=== PATIENT | female | born 1960 | race Caucasian/White ===

== ENCOUNTER 2016-11-01 11:58 | Emergency (ER) | payer MEDICAID ==
[2016-11-01 12:36] VITALS: RESP 16; O2SAT 95
--- NOTE | 2016-11-01 12:43 | EDPHY ---
H & P Stated Complaint: tripped and fell onto pavement last noc,injurying rt knee, palm of hand, Time Seen by Provider: 11/01/16 12:42 HPI/ROS: Chief Complaint: Fall HPI: 56-year-old woman had a mechanical slip and fall last night about 9 in the evening. She looked at her foot stuck tends to the floor and fell forward. Patient landed on her right knee pain in her shoulder at that time. Patient has been ambulating and doing well until this morning she was walking around table slipped and fell again with her foot on the carpet falling down 3 stairs. Patient landed on her chin and her left knee. Pain paining of chin pain and pain below her left knee and pain behind her right shoulder. She had no loss of consciousness. She remembers falling is mechanical fall. Did not have any lightheadedness or syncope. No chest pain or palpitations. No shortness of breath. No abdominal pain. She has been able to ambulate since then. She does have a history of bilateral knee replacements and is concerned about the knee replacement on the left. She is able to weight bear flex and extend. ROS: 10 point Review of Systems is negative except as noted in the HPI. PMH: None surgical history: Bilateral knee replacements and a right patellar tendon repair Social History: No smoking, no alcohol, no recreational drug use Family History: non-contributory Physical Exam: Gen: Awake, Alert, No Distress HEENT: Nose: no rhinorrhea Eyes: PERRLA, EOMI Mouth: Moist mucosa dentition is intact. She has got ecchymoses anterior left campbell. She has no mandibular tenderness to palpation. Normal bite Neck: Supple, no JVD, no midline tenderness or step-offs Chest: nontender, lungs clear to auscultation Heart: S1, S2 normal, no murmur Abd: Soft, non-tender, no guarding Back: no CVA tenderness, no midline tenderness Ext: no edema, right shoulder: No reproducible tenderness. She has got full range of motion both actively and passively without pain right shoulder. Left knee. There is a abrasion in the inferior to her left anterior knee. She has full flexion extension. No bony tenderness. Skin: no rash Neuro: CN II-XII intact, Sensation grossly intact, Strength 5/5 in bilateral upper and [lower] extremities - Personal History Current Tetanus Diphtheria and Acellular Pertussis (TDAP): Unsure - Medical/Surgical History Hx Asthma: No Hx Chronic Respiratory Disease: No Hx Diabetes: No Hx Cardiac Disease: No Hx Renal Disease: No Hx Cirrhosis: No Hx Alcoholism: No Hx HIV/AIDS: No Hx Splenectomy or Spleen Trauma: No Other PMH: Med [id number] ,hayfever. Surg-bilat knees,bilat feet, patella tendon rt,saima,tonsils - Social History Smoking Status: Never smoked Constitutional: Initial Vital Signs Temperature (C) 37.0 C 11/01/16 12:29 Heart Rate 60 11/01/16 12:29 Respiratory Rate 16 11/01/16 12:29 Blood Pressure 156/78 H 11/01/16 12:29 O2 Sat (%) 95 11/01/16 12:29 O2 Delivery Mode Room Air Allergies/Adverse Reactions: HAYFEVER Allergy (Mild, Uncoded 05/01/12 16:04) STUFFY NOSE Home Medications: Medication Instructions Recorded Aleve 11/01/16 Claritin 11/01/16 Tramadol HCl 11/01/16 VITAMIN D 11/01/16 Vitamin B-Complex & C 11/01/16 Medical Decision Making - Diagnostics Imaging: I viewed and interpreted images myself Departure - Departure Disposition: Home, Routine, Self-Care Clinical Impression: Contusion of chin, Contusion, knee Condition: Good Instructions: Contusion in Adults (ED), Facial Contusion (ED) Additional Instructions: May alternate ibuprofen with acetaminophen every 4 hours as needed for aches and pains. Apply ice for 15 minutes of every hour for the next day while awake. Follow up with primary care physician in 3-4 days if symptoms are not improving. Return to the emergency depart for increasing headache, jaw pain, nausea, vomiting, fevers, chills, or any other concerns. Referrals: More Youngblood MD [Primary Care Provider] - As per Instructions
[2016-11-01] MEDS ORDERED: ACETAMINOPHEN 160 MG/5 ML UDCUP PO ONE (13:21)
[2016-11-01] MEDS ORDERED: ACETAMINOPHEN 500 MG TAB ONE (13:42)
[2016-11-01 14:04] VITALS: BP 147/75; PULSE 62; TEMP 98.6
== END 2016-11-01 13:57 | disposition home or self-care (01) ==
LOC: CED 11:58
DX: S80.01XA Contusion of right knee, initial encounter (principal); S00.83XA Contusion of other part of head, initial encounter; W01.0XXA Fall on same level from slipping, tripping and stumbling without subsequent striking against object, initial encounter; Y92.488 Other paved roadways as the place of occurrence of the external cause
CPT/HCPCS: 73564-PO

== ENCOUNTER → 2016-11-09 | Outpatient (CLI) | payer MEDICAID | LOC: CIMAGING 10:52 | PROVIDERS: ATTEND Family Medicine | DX: M25.552 Pain in left hip (principal) | CPT/HCPCS: 73502-PO ==

== ENCOUNTER → 2017-05-31 | Outpatient (CLI) | payer MEDICAID | LOC: CIMAGING 14:17 | PROVIDERS: ATTEND Family Medicine | DX: Z12.31 Encounter for screening mammogram for malignant neoplasm of breast (principal) | CPT/HCPCS: G0202 ==